=== PATIENT | male | born 1980 | race Caucasian/White ===

== ENCOUNTER 2020-04-19 08:00 | Outpatient (CLI) | payer OTHER ==
[2020-04-19 12:25] LABS: ALBUMIN 4.8 g/dL (3.2-5.5); ALBUMIN/GLOBULIN RATIO 1.6 (1.0-2.2); ALKALINE PHOSPHATASE 69 IU/L (42-121); ALT ALANINE AMINOTRANSFERASE 41 IU/L (10-60); AST ASPARTATE AMINOTRANSFERASE 28 IU/L (10-42); BUN - BLOOD UREA NITROGEN 17 mg/dL (6-20); CALCIUM 9.6 mg/dL (8.5-10.3); CARBON DIOXIDE - CO2 27 mmol/L (21-32); CHLORIDE 103 mmol/L (101-111); CHOL/HDL RATIO 4.7 (<5.0); CHOLESTEROL 156 mg/dL; CREATININE 0.8 mg/dL (0.6-1.2); GLUCOSE 82 mg/dL (70-100); HDL CHOLESTEROL 33 mg/dL; LDL CHOLESTEROL,CALCULATED 77 mg/dL; LDL/HDL RATIO 2.3 (<3.6); SODIUM 138 mmol/L (135-145); TOTAL PROTEIN 7.8 g/dL (6.7-8.2); VLDL CHOLESTEROL 46 mg/dL
== END 2020-04-19 23:59 | disposition home or self-care (01) ==
LOC: LAB.WCP 08:00
PROVIDERS: ATTEND Physician Assistant
DX: Z00.00 Encounter for general adult medical examination without abnormal findings (principal)
CPT/HCPCS: 36415; 80053; 80061; 83721

== ENCOUNTER 2020-05-07 20:37 | Outpatient (CLI) | payer OTHER | END 2020-05-07 20:38 | disposition home or self-care (01) | LOC: SC 20:37 | PROVIDERS: ATTEND Nurse Practitioner Family | DX: G47.33 Obstructive sleep apnea (adult) (pediatric) (principal); E66.9 Obesity, unspecified; Z68.41 Body mass index [BMI] 40.0-44.9, adult | CPT/HCPCS: 95810 ==

== ENCOUNTER 2020-05-13 16:19 | Outpatient (CLI) | payer OTHER ==
--- NOTE | 2020-05-13 16:40 | SLEEP CARE CONSULTATION ---
Information from patient questionnaire entered by Ingrid Rouse. I have reviewed and concur with the information entered by Ingrid Rouse. This document represents the service I personally performed and the decisions made by me, Debi Chew ARNP. History of Present Illness Service Date and Time: 05/13/2020 161 Initial [place] Sleepiness Scale score: 7 (in 2020) Current [place] Sleepiness Scale score: 10 Additional HPI information: NISSA SOTO returns for follow up and results of the recently performed polysomnography. I explained the pathophysiology behind obstructive sleep apnea. We then spent quite a bit of time discussing different treatment options. For mild obstructive sleep apnea, surgery and oral appliance are alternatives to nasal CPAP therapy but in moderate or severe cases, nasal CPAP is the most effective and reliable treatment. After some discussion, the patient opted to go with the nasal CPAP therapy. Nasal autoCPAP set at 4-15 cmH20 will be ordered with rationale explained. A manual titration study will be ordered if unable to find optimal pressure with office adjustments. I explained how CPAP machine works with sample devices [employer]pi Dreamstation and Proximiant [id number] and what to expect when using the machine. Using CPAP every night in order to get used to it was emphasized. Patient advised to put CPAP mask on before getting into bed so as not to fall asleep without CPAP. To assist acclimation to CPAP use, it could also be used for a short time during day while reading or watching TV. The patient was instructed to call the CPAP supplier to discuss any mechanical problem that may occur. If the mask given is uncomfortable or is difficult to keep on through the night even with adjustment, contact the CPAP supplier as many will replace with another mask style if notified before 30 days. If snoring or perceives is not getting enough air or too much air from the machine, notify this office. [facility] patient education PAP tips reviewed and given to patient. Patient counseled not drink alcohol less than 4 hours before bedtime as it can increase snoring and apnea. Patient was cautioned about risks of drowsy driving until sleepiness symptoms resolve. Sleep Study - Results Type of Sleep Study: Polysomnography Prior sleep studies: No Polysomnography/Home Sleep Study results: IMPRESSION: The quality of the study is good. The patient had normal sleep efficiency. The sleep architecture was abnormal for sleep fragmentation and reduced amount of time spent in REM and slow wave sleep (N3). Respiratory monitoring showed severe obstructive sleep apnea-hypopnea (AHI = 48.7) associated with frequent arousals, oxyhemoglobin desaturation and moderate hypoxia (nolan oxygen saturation of 77%). Baseline oxygen saturation was normal. The respiratory events occurred mainly during supine sleep (supine AHI = 70.6; non-supine = 13.62). Snore was loud in intensity. There was no significant periodic leg movement of sleep. Cardiac rhythm was normal sinus rhythm without significant arrhythmia. No abnormal behavior (parasomnia) observed during the night. Allergies and Home Medications Drug allergies reviewed: Yes (NKDA) Home medication list reviewed: Yes (no changes) Review of Systems Review of systems same as previous: Yes (no changes) Physical Exam Heart Rate: 80 O2 Saturation: 98 Height: 5 ft 5 in Weight: 235 lb Body Mass Index: 39.1 BMI Classification: Obese Impression and Plan 1. Obstructive Sleep Apnea-Hypopnea Syndrome, severe, with lowest oxygen saturation of 77%. This is the possible cause of the patients symptoms of unrefreshed sleep, and excessive daytime sleepiness. Positive pressure therapy could benefit his overall health and prevent cardiovascular or cerebrovascular events. As mentioned above, the patient will be started on nasal autoCPAP therapy with pressure set at 4-15 cmH2O. A manual titration study will be completed if unable to find optimal treatment pressure with office adjustments. Compliance guidelines also reviewed. A copy of compliance guidelines will be given for reference at check out. Because the apnea is more severe supine, I instructed to avoid sleeping supine using pillow positioning until able to start CPAP use. * Nasal auto CPAP therapy, pressure at 4-15 cm H2O. * Attempt to lose weight. * Avoid alcohol consumption near bedtime. * Avoid supine sleep until using CPAP. * The patient is again cautioned about driving until sleepiness completely resolves. * Return one month after CPAP obtained. I will assess response to therapy and compliance at that time. Visit Type: In Office Time Spent with Patient (minutes): 20 Provider Statement: I spent 100% of the Face to Face Visit with the patient with greater than 50% spent counseling the patient and coordination of care.
== END 2020-05-13 16:20 | disposition home or self-care (01) ==
LOC: SC 16:19
PROVIDERS: ATTEND Nurse Practitioner Family
DX: G47.33 Obstructive sleep apnea (adult) (pediatric) (principal); E66.9 Obesity, unspecified; Z68.39 Body mass index [BMI] 39.0-39.9, adult
CPT/HCPCS: 99212; 99213

== ENCOUNTER 2020-07-27 15:25 | Outpatient (CLI) | payer OTHER ==
--- NOTE | 2020-07-27 15:52 | SLEEP CARE CONSULTATION ---
Information from patient questionnaire entered by Ingrid Rouse. I have reviewed and concur with the information entered by Ingrid Rouse. This document represents the service I personally performed and the decisions made by , Debi Chew ARNP. History of Present Illness Service Date and Time: 07/27/2020 1525 Previous diagnosis: Severe, Obstructive Sleep Apnea-Hypopnea Syndrome AHI: 48.7 Reason for follow up: first compliance (06/05/20) Equipment type: CPAP Equipment obtained from: [employer]; initial supplies received) Mask style: Nasal (over the nose, N50?) Backup mask available: No (will keep mask once replaced) Last cushion change: 6 weeks Prior sleep studies: Yes Year and Where: 2019 [facility] Type of Sleep Study: Polysomnography HPI additional information: NISSA SOTO was diagnosed to have severe, AHI 48.7, obstructive sleep apnea- hypopnea syndrome and returned today for CPAP therapy first compliance follow- up. Sleep Study - Results Type of Sleep Study: Polysomnography Prior sleep studies: No CPAP Compliance Data - Data Reviewed with Patient Average duration of nightly device use: 7 hours 36 minutes Compliance rate %: 97 Current pressure setting (cmH2O): 4-15 (median 10.3, 95th 13.0, max 14.2) Humidity settin Average residual AHI: 0.8 Central apnea: 0.2 Obstructive apnea: 0.4 Subjective Patient concerns: reports: mask discomfort (tip of nose hits the inside of mask sometimes), air blowing in eyes (some, not very much, adjusting helps), condensation in mask/hose (adjusted his humidity to 2 and that is better). denies: aerophagia, mask leak noise, nasal congestion, dry mouth, nose, throat, epistaxis, other Observed to snore while using device: No Current pressure setting perceived as: comfortable On therapy, patient: reports: sleeping better, awakening more refreshed, being more awake and alert during the day, more rested overall. denies: drowsiness while driving Initial [place] Sleepiness Scale score: 7 (in 2019) Current [place] Sleepiness Scale score: 1 Allergies and Home Medications Drug allergies reviewed: Yes (NKDA) Home medication list reviewed: Yes (no changes) Review of Systems Review of systems same as previous: Yes (no changes) Physical Exam Heart Rate: 85 O2 Saturation: 99 Height: 5 ft 5 in Weight: 241 lb Body Mass Index: 40.1 BMI Classification: Morbidly Obese Impression and Plan 1. Obstructive Sleep Apnea-Hypopnea Syndrome, severe, with good treatment compliance and great apnea control. On CPAP therapy, the patient has better sleep quality and is more rested overall. He has been using an over the nose mask that he states the medium is the best fit but he can feel the tip of his nose hit the end of the mask. He states this does not feel very good at times. He would like to try the nasal cushion mask and I will write for a mask refitting to try this mask. He is otherwise doing well with treatment. His down load shows him using median 10.3 cm H2O, 95% 13.0 cm H2O and max 14.2 cm H2O. Based upon these readings, I will adjust his pressure to 10-14 cm H2O and follow up with him in 1-2 months. Patient's apnea severity and rationale for treatment to reduce apnea, improve sleep quality and reduce cardiovascular and cereb rovascular events was reviewed. * Change auto CPAP pressure to 10-14 cmH2O * Notify me if snoring with mask or feeling that the pressure is too much or too little * Attempt to lose weight * Call this office if any problems using CPAP * Return for follow up in 1-2 months, or sooner if concerns arise Counseling Topics: Spare mask, Weight loss health impact Visit Type: In Office Time Spent with Patient (minutes): 21 Provider Statement: I spent 100% of the Face to Face Visit with the patient with greater than 50% spent counseling the patient and coordination of care.
== END 2020-07-27 15:26 | disposition home or self-care (01) ==
LOC: SC 15:25
PROVIDERS: ATTEND Nurse Practitioner Family
DX: G47.33 Obstructive sleep apnea (adult) (pediatric) (principal); E66.01 Morbid (severe) obesity due to excess calories; Z68.41 Body mass index [BMI] 40.0-44.9, adult
CPT/HCPCS: 99212; 99213

== ENCOUNTER 2020-09-29 15:22 | Outpatient (CLI) | payer OTHER ==
--- NOTE | 2020-09-29 15:52 | SLEEP CARE CONSULTATION ---
Information from patient questionnaire entered by Ingrid Rouse. I have reviewed and concur with the information entered by Ingrid Rouse. This document represents the service I personally performed and the decisions made by , Debi Chew ARNP. History of Present Illness Service Date and Time: 09/29/2020 1522 Previous diagnosis: Severe, Obstructive Sleep Apnea-Hypopnea Syndrome AHI: 48.7 Reason for follow up: first compliance after device update, other (2-month followup - pressure change) Equipment type: CPAP Equipment obtained from: [email or web address] (no issues but their prices are high; getting supplies as needed) Mask style: Nasal Backup mask available: Yes (other mask) Last cushion change: 1 month Prior sleep studies: No Year and Where: 2019 [facility] Type of Sleep Study: Polysomnography HPI additional information: NISSA SOTO was diagnosed to have severe, AHI 48.7, obstructive sleep apnea- hypopnea syndrome and returned today for CPAP therapy 2 month pressure change follow-up. CPAP Compliance Data - Data Reviewed with Patient Average duration of nightly device use: 7 h 31 min Compliance rate %: 95 Current pressure setting (cmH2O): 10-14 Average residual AHI: 0.7 Central apnea: 0.3 Obstructive apnea: 0.2 Subjective Missed days of use due to: reports: other (Power outage) Patient concerns: denies: aerophagia (since beginning of August has had some bloating for 2 weeks), mask discomfort, air blowing in eyes, mask leak noise, condensation in mask/hose, nasal congestion, dry mouth, nose, throat, epistaxis, other Observed to snore while using device: No (only in certain positions or if has congestion; uncommon) Current pressure setting perceived as: comfortable On therapy, patient: reports: sleeping better, awakening more refreshed, being more awake and alert during the day, more rested overall. denies: drowsiness while driving Initial [place] Sleepiness Scale score: 7 (in 2019) Current [place] Sleepiness Scale score: 1 Allergies and Home Medications Home medication list reviewed: Yes (no changes) Review of Systems Review of systems same as previous: Yes (no changes) Physical Exam Heart Rate: 73 O2 Saturation: 96 Height: 5 ft 5 in Weight: 239 lb Body Mass Index: 39.7 BMI Classification: Obese Impression and Plan 1. Obstructive Sleep Apnea-Hypopnea Syndrome, severe, with good treatment compliance and good apnea control. On CPAP therapy, the patient has better sleep quality and is more rested overall. He thought he was having aerophagia. He started feeling bloated in early August but the feeling continued for two weeks with slow resolution. The bloating/uncomfortable feeling with some intestinal discomfort lasted throughout the day. He did not have burping/flatus that resolved in the morning. I am not convinced his bloating was from the CPAP therapy. We will continue the pressure at current setting since he has good compliance and excellent response from the therapy. He is happy with the treatment and comfortable with the mask use. I will have him follow up in 6 months. He may come in sooner if he develops any concerns. He voiced understanding and agreement with plan. Patient's apnea severity and rationale for treatment to reduce apnea, improve sleep quality and reduce cardiovascular and cerebrovascular events was reviewed. * Continue autoCPAP pressure at 10-14 cmH2O * Notify me if snoring with mask or feeling that the pressure is too much or too little * Attempt to lose weight * Call this office if any problems using CPAP * Return for follow up in 6 months, or sooner if concerns arise Counseling Topics: Spare mask, Weight loss health impact Visit Type: In Office Time Spent with Patient (minutes): 16 Provider Statement: I spent 100% of the Face to Face Visit with the patient with greater than 50% spent counseling the patient and coordination of care.
== END 2020-09-29 15:23 | disposition home or self-care (01) ==
LOC: SC 15:22
PROVIDERS: ATTEND Nurse Practitioner Family
DX: G47.33 Obstructive sleep apnea (adult) (pediatric) (principal); E66.9 Obesity, unspecified; Z68.39 Body mass index [BMI] 39.0-39.9, adult
CPT/HCPCS: 99212

== ENCOUNTER 2021-07-12 13:59 | Outpatient (CLI) | payer OTHER ==
[2021-07-12 14:36] VITALS: BP 135/90
--- NOTE | 2021-07-12 14:36 | SLEEP CARE CONSULTATION ---
Information from patient questionnaire entered by Radha Crocker MA. I have reviewed and concur with the information entered by Radha Crocker MA. This document represents the service I personally performed and the decisions made by , Debi Chew ARNP. History of Present Illness Service Date and Time: 07/12/2021 1359 Previous diagnosis: Severe, Obstructive Sleep Apnea-Hypopnea Syndrome AHI: 48.7 Reason for follow up: other (9 month follow up) Equipment type: CPAP Equipment obtained from: [employer] (no issues but their prices are high; getting supplies on [employer]) Mask style: Nasal pillows (P10) Backup mask available: Yes (old mask) Last cushion change: about 3 weeks Prior sleep studies: No Year and Where: 2019 [facility] Type of Sleep Study: Polysomnography HPI additional information: NISSA SOTO was diagnosed to have severe, AHI 48.7, obstructive sleep apnea- hypopnea syndrome and returned today for CPAP therapy 7 month follow-up. Sleep Study - Results Type of Sleep Study: Polysomnography Prior sleep studies: No Year and Where: 2019 [facility] CPAP Compliance Data - Data Reviewed with Patient Average duration of nightly device use: 7 hours 36 minutes Compliance rate %: 100 Current pressure setting (cmH2O): 10 - 14 Average residual AHI: 0.6 Central apnea: .2 Obstructive apnea: .1 Subjective Missed days of use due to: reports: other (power outage ) Patient concerns: denies: aerophagia, mask discomfort, air blowing in eyes, mask leak noise, condensation in mask/hose, nasal congestion, dry mouth, nose, throat, epistaxis, other Observed to snore while using device: No Current pressure setting perceived as: comfortable On therapy, patient: reports: sleeping better, awakening more refreshed, being more awake and alert during the day, more rested overall. denies: drowsiness while driving Initial [place] Sleepiness Scale score: 7 (in 2019) Current [place] Sleepiness Scale score: 1 (in 2020) Allergies and Home Medications Home medication list reviewed: Yes (no changes) Review of Systems Review of systems same as previous: Yes (no changes) Physical Exam Vital signs obtained and entered by: MARIO QUEVEDO Blood Pressure: 135/90 (right) Cuff size: wrist Heart Rate: 80 O2 Saturation: 97 (with mask) Height: 5 ft 5 in Weight: 240 lb ( weight from PT. ) Body Mass Index: 39.9 BMI Classification: Obese Impression and Plan 1. Obstructive Sleep Apnea-Hypopnea Syndrome, severe, with good treatment compliance and good apnea control. On CPAP therapy, the patient has better sleep quality and is more rested overall. Patient changed to a different nasal pillows mask. He likes it much better than the other nasal cushion mask he was using. He occasionally gets red shi on his face the mask hits his cheek. Discussed using a barrier to help reduce this and also to keep the mask etc. clean. He states he does have a barrier he just has not use it with this mask change yet. He will try this again to reduce skin redness. Patient was encouraged to lose weight for their overall health and to reduce apneas. Patient's apnea severity and rationale for treatment to reduce apnea, improve sleep quality and reduce cardiovascular and cerebrovascular events was reviewed. * Continue auto CPAP pressure at 10-14 cmH2O * Notify me if snoring with mask or feeling that the pressure is too much or too little * Attempt to lose weight * Call this office if any problems using CPAP * Return for follow up in 1 year, or sooner if concerns arise Counseling Topics: Spare mask, Weight loss health impact Visit Type: In Office Time Spent with Patient (minutes): 12 Provider Statement: I spent 100% of the Face to Face Visit with the patient with greater than 50% spent counseling the patient and coordination of care.
== END 2021-07-12 14:00 | disposition home or self-care (01) ==
LOC: SC 13:59
PROVIDERS: ATTEND Nurse Practitioner Family
DX: G47.33 Obstructive sleep apnea (adult) (pediatric) (principal); E66.9 Obesity, unspecified; Z68.39 Body mass index [BMI] 39.0-39.9, adult
CPT/HCPCS: 99212

== ENCOUNTER 2021-10-22 09:01 | Outpatient (CLI) | payer OTHER ==
[2021-10-22 10:23] LABS: BILIRUBIN,URINE NEGATIVE (NEGATIVE); CLARITY,URINE CLEAR (CLEAR); GLUCOSE, URINE (UA) NEGATIVE (NEGATIVE); KETONES,URINE (UA) NEGATIVE (NEGATIVE); LEUKOCYTE ESTERASE, URINE NEGATIVE (NEGATIVE); NITRITE,URINE NEGATIVE (NEGATIVE); OCCULT BLOOD,URINE NEGATIVE (NEGATIVE); PROTEIN,URINE NEGATIVE (NEGATIVE); UROBILINOGEN,URINE 0.2 (NORMAL) E.U./dL (NORMAL)
[2021-10-22 10:35] LABS: BACTERIA,URINE Rare /HPF (None Seen); RBC,URINE 0-5 /HPF (0-5); SQUAMOUS EPITHELIAL CELL,UR NONE SEEN (<= Few); WBC,URINE 0-3 /HPF (0-3)
--- NOTE | 2021-10-22 11:03 | Ultrasound Report ---
PROCEDURE: Abdomen Complete INDICATIONS: RUQ ABD TENDERNESS TECHNIQUE: Real-time scanning was performed of the abdominal and retroperitoneal organs, with image documentatio n. COMPARISON: None. FINDINGS: Liver: Diffuse increased echogenicity, consistent with diffuse hepatic steatosis. Fatty sparing subja cent to the gallbladder. Gallbladder: Multiple layering gallstones are present. No gallbladder wall thickening. No pain on exa mination. Biliary ducts: Intrahepatic bile ducts are non-dilated. Extrahepatic bile duct caliber measures 3 m m. Normal is 6-7 mm or less in diameter, or 10 mm or less post-cholecystectomy. Pancreas: Visualized portions of the pancreas are sonographically normal. Spleen: Spleen is normal in size and homogeneous in echotexture. Kidneys: Kidneys are normal in size and echotexture. Right kidney measures 11.9 cm long; left kidne y measures 12.3 cm long. No hydronephrosis or nephrolithiasis. No solid masses. Aorta: Visualized aorta is normal in caliber at less than 3 cm. Iliacs: Proximal common iliac arteries are normal in caliber at less than 2.5 cm. IVC: Intrahepatic inferior vena cava is patent. Miscellaneous: No free abdominal fluid. IMPRESSION: 1. Diffuse hepatic steatosis. 2. Cholelithiasis. Reviewed by: Michel Regalado MD on 10/22/2021 10:01 AM [facility] Approved by: Michel Regalado MD on 10/22/2021 10:01 AM [facility] Station ID: [id number]
[2021-10-22 11:23] LABS: BASOPHILS % (AUTO) 0.2 %; EOSINOPHILS % (AUTO) 0.8 %; HCT - HEMATOCRIT 45.2 % (42.0-52.0); HGB - HEMOGLOBIN 15.5 g/dL (14.0-18.0); LYMPHOCYTES # (AUTO) 1.6 10^3/uL (1.5-3.5); LYMPHOCYTES % (AUTO) 29.9 %; MEAN CORPUSCULAR HEMOGLOBIN 30.2 pg (27.0-31.0); MEAN CORPUSCULAR HGB CONC 34.3 g/dL (32.0-36.0); MEAN CORPUSCULAR VOLUME 88.1 fL (80.0-94.0); MEAN PLATELET VOLUME 9.6 fL (7.4-11.4); MONOCYTES # (AUTO) 0.5 10^3/uL (0.0-1.0); MONOCYTES % (AUTO) 9.2 %; NEUTROPHILS # (AUTO) 3.1 10^3/uL (1.5-6.6); NEUTROPHILS % (AUTO) 59.5 %; PLT - PLATELET COUNT 208 10^3/uL (130-450); RED BLOOD COUNT 5.13 10^6/uL (4.70-6.10); RED CELL DISTRIBUTION WIDTH 11.9 % (12.0-15.0); WHITE BLOOD COUNT 5.2 x10^3/uL (4.8-10.8)
[2021-10-22 11:45] LABS: ALBUMIN 4.5 g/dL (3.2-5.5); ALBUMIN/GLOBULIN RATIO 1.5 (1.0-2.2); ALKALINE PHOSPHATASE 66 IU/L (42-121); ALT ALANINE AMINOTRANSFERASE 40 IU/L (10-60); AMYLASE 59 U/L (28-100); AST ASPARTATE AMINOTRANSFERASE 27 IU/L (10-42); BILIRUBIN,TOTAL 0.5 mg/dL (0.2-1.0); BUN - BLOOD UREA NITROGEN 17 mg/dL (6-20); CALCIUM 9.5 mg/dL (8.5-10.3); CARBON DIOXIDE - CO2 27 mmol/L (21-32); CHLORIDE 104 mmol/L (101-111); CHOLESTEROL 155 mg/dL; CREATININE 0.9 mg/dL (0.6-1.2); GFR - MDRD 93 (>89); GLUCOSE 86 mg/dL (70-100); HDL CHOLESTEROL 31 mg/dL; LDL CHOLESTEROL,CALCULATED 68 mg/dL; LDL/HDL RATIO 2.2 (<3.6); LIPASE 37 U/L (22-51); POTASSIUM 4.2 mmol/L (3.5-5.0); SODIUM 141 mmol/L (135-145); TOTAL PROTEIN 7.6 g/dL (6.7-8.2); TRIGLYCERIDES 281 mg/dL; VLDL CHOLESTEROL 56 mg/dL
[2021-10-22 19:53] LABS: ESTIMATED AVERAGE GLUCOSE 94 mg/dL (70-100); HEMOGLOBIN A1c% 4.9 % (4.27-6.07)
== END 2021-10-22 09:02 | disposition home or self-care (01) ==
LOC: DI 09:01 → LAB 09:02
PROVIDERS: ATTEND Nurse Practitioner
DX: R10.811 Right upper quadrant abdominal tenderness (principal); Z13.220 Encounter for screening for lipoid disorders; E66.9 Obesity, unspecified; K76.0 Fatty (change of) liver, not elsewhere classified; K80.20 Calculus of gallbladder without cholecystitis without obstruction
CPT/HCPCS: 36415; 80053; 80061; 81001; 82150; 83036; 83690; 83721; 85025; 87086

== ENCOUNTER 2022-06-01 08:00 | Outpatient (CLI) | payer OTHER ==
--- NOTE | 2022-06-02 10:57 | Mammography Report ---
MALE BILATERAL DIGITAL DIAGNOSTIC MAMMOGRAM 3D/2D: 06/01/2022 CLINICAL: Palpable right breast lump with tenderness for 6 months. No prior exams were available for comparison. There is a round focal asymmetry in the right breast at 1 o'clock middle depth 0.7 cm from the nipple and 0.5 cm from the skin. This correlates as palpated. No other significant masses, calcifications, or other findings are seen in either breast. IMPRESSION: INCOMPLETE: NEEDS ADDITIONAL IMAGING EVALUATION Round focal asymmetry in the right breast is indeterminate. An ultrasound will be performed for bhavani tional characterization. This exam was interpreted at Station ID: [id number]. NOTE: For mammograms, a report in lay terms will be sent to the patient. Approximately 15% of breast malignancies will not be visualized mammographically. In the management of a palpable breast mass, a negative mammogram must not discourage biopsy of a clinically suspicious lesion. Electronically Signed By: Raphael Cabezas M.D. jr/:06/01/2022 10:04:35 ACR BI-RADS Category 0: Incomplete [id number] PARENCHYMAL PATTERN: (D) - The breast(s) demonstrate(s) heterogeneously dense fibroglandular parcarmelina solorzano. BI-RADS CATEGORY: (0) - 0 Ultrasound [id number] Immediate follow-up LATERALITY: (B)
--- NOTE | 2022-06-02 10:57 | Ultrasound Report ---
LIMITED ULTRASOUND OF RIGHT BREAST: 06/01/2022 CLINICAL: Patient returns today to evaluate an asymmetry in the right breast. Palpable right breast l ump. Comparison is made to exam dated: 06/01/2022 mammogram - [facility]. Color flow and real-time ultrasound of the right breast 2-3 o'clock region were performed. Monroy scal e images of the real-time examination were reviewed. There is a round mass with an angular margin in the right breast at 2 o'clock middle depth 0.7 cm fro m the nipple and 0.5 cm from the skin. This round mass is hypoechoic with no posterior acoustic shad owing or enhancement. IMPRESSION: SUSPICIOUS OF MALIGNANCY The round mass in the right breast is suspicious of malignancy. An ultrasound guided biopsy is recom mended. This exam was interpreted at Station ID: [id number]. Electronically Signed By: Raphael Cabezas M.D. jr/:06/01/2022 10:05:47 Ultrasound BI-RADS: 4 Suspicious for malignancy BI-RADS CATEGORY: (4) - 4 Biopsy [id number] Immediate follow-up LATERALITY: (R)
== END 2022-06-01 08:01 | disposition home or self-care (01) ==
LOC: DI 08:00
PROVIDERS: ATTEND Nurse Practitioner
DX: N63.12 Unspecified lump in the right breast, upper inner quadrant (principal)

== ENCOUNTER 2022-06-20 13:40 | Outpatient (CLI) | payer OTHER ==
[~2022-06-20 13:40] MED LIST: LIDOCAINE 1%-EPI 1:100000 20 ML MDV ONE; lidocaine 1% 20 ML MDV ONE
--- NOTE | 2022-06-23 15:18 | Ultrasound Report ---
LIMITED ULTRASOUND OF RIGHT BREAST: 06/20/2022 CLINICAL: Short term follow up of the right breast. Bx cx'ed by performing radiologist... Comparison is made to exams dated: 06/01/2022 ultrasound and 06/01/2022 mammogram - [facility]. Color flow and real-time ultrasound of the right breast 2 o'clock region were performed. [place]roy scale images of the real-time examination were reviewed. There is a round mass with a circumscribed margin in the right breast at 1 o'clock middle depth 0.7 c m from the nipple and 0.5 cm from the skin. This round mass is anechoic with posterior acoustic enha ncement. Color flow imaging demonstrates that there is no increase in vascularity. IMPRESSION: PROBABLY BENIGN The round mass in the right breast most likely is a sebaceous cyst and is probably benign. Biopsy is no longer recommended. Follow-up ultrasound recommended in 6 months. This exam was interpreted at Station ID: [id number]. Electronically Signed By: Raphael Cabezas M.D. jr/:06/22/2022 11:26:25 Ultrasound BI-RADS: 3 Probably benign BI-RADS CATEGORY: (3) - 3 Ultrasound [id number] 6 month follow-up LATERALITY: (B)
== END 2022-06-20 13:41 | disposition home or self-care (01) ==
LOC: DI 13:40
PROVIDERS: ATTEND Nurse Practitioner
DX: N63.12 Unspecified lump in the right breast, upper inner quadrant (principal)

== ENCOUNTER 2023-02-19 10:10 | Outpatient (CLI) | payer OTHER ==
--- NOTE | 2023-02-21 10:35 | Ultrasound Report ---
LIMITED ULTRASOUND OF RIGHT BREAST: 02/19/2023 CLINICAL: Palpable right breast lump. Comparison is made to exams dated: 06/20/2022 ultrasound, 06/01/2022 ultrasound, and 06/01/2022 mammo [facility]. Color flow ultrasound of the right breast 2 o'clock region was performed. [place] scale images of the r eal-time examination were reviewed. There is a 0.3 cm x 0.3 cm x 0.2 cm round cyst in the right breast at 2 o'clock middle depth 7 cm fro m the nipple. This round cyst displays posterior acoustic enhancement. Color flow imaging demonstra shiv that there is no increase in vascularity. IMPRESSION: PROBABLY BENIGN The 0.3 cm x 0.3 cm x 0.2 cm round suspected cyst in the right breast most likely is a sebaceous cyst and is probably benign. A follow-up ultrasound in 6 months is recommended. This exam was interpreted at Station ID: [id number]. Electronically Signed By: Raj Lopez M.D. lc/:02/19/2023 10:54:03 Ultrasound BI-RADS: 3 Probably benign BI-RADS CATEGORY: (3) - 3 Ultrasound [id number] 6 month follow-up LATERALITY: (B)
== END 2023-02-19 10:11 | disposition home or self-care (01) ==
LOC: DI 10:10
PROVIDERS: ATTEND Nurse Practitioner
DX: N63.12 Unspecified lump in the right breast, upper inner quadrant (principal)

== ENCOUNTER 2023-03-15 08:00 | Outpatient (CLI) | payer OTHER ==
[2023-03-15 18:25] LABS: BILIRUBIN,URINE NEGATIVE (NEGATIVE); GLUCOSE, URINE (UA) NEGATIVE (NEGATIVE); KETONES,URINE (UA) NEGATIVE (NEGATIVE); LEUKOCYTE ESTERASE, URINE NEGATIVE (NEGATIVE); NITRITE,URINE NEGATIVE (NEGATIVE); OCCULT BLOOD,URINE NEGATIVE (NEGATIVE); PH,URINE 6.5 PH (5.0-7.5); PROTEIN,URINE NEGATIVE (NEGATIVE); UROBILINOGEN,URINE 0.2 (NORMAL) E.U./dL (NORMAL)
[2023-03-15 18:30] LABS: CLARITY,URINE CLEAR (CLEAR)
[2023-03-15 19:08] LABS: RBC,URINE 0-5 /HPF (0-5); SQUAMOUS EPITHELIAL CELL,UR NONE SEEN (<= Few); WBC,URINE 0-3 /HPF (0-3)
[2023-03-15 19:09] LABS: BACTERIA,URINE Rare /HPF (None Seen); MUCUS,URINE Few Strands
== END 2023-03-15 23:59 | disposition home or self-care (01) ==
LOC: LAB 08:00
PROVIDERS: ATTEND Urology
DX: N48.89 Other specified disorders of penis (principal)
CPT/HCPCS: 81001; 87086

== ENCOUNTER 2023-06-14 03:25 | Emergency (ER) | payer OTHER ==
[2023-06-14] MEDS ORDERED: SODIUM CHLORIDE 0.9% 1,000 ML IV STA (03:42)
[2023-06-14] MEDS ORDERED: KETOROLAC 30 MG/ML VIAL IVP STA (03:49)
--- NOTE | 2023-06-14 03:51 | ED Physician Documentation ---
History of Present Illness - Stated complaint Stated Complaint: ABD PX - Chief complaint Chief Complaint: Abd Pain - History obtained from History obtained from: Patient - Additonal information Additional information: 43-year-old male with past surgical history of cholecystectomy, otherwise healthy, presents with right flank pain waking him from sleep tonight and hematuria. Denies fever, abdominal pain, nausea, dysuria, diarrhea. PD PAST MEDICAL HISTORY - Present Medications Home Medications: Ambulatory Orders Medication Instructions Recorded Confirmed Oxycodone HCl/Acetaminophen 1 each PO Q4H PRN #8 tablet 06/14/23 [Percocet 5-325 mg Tablet] Tamsulosin [Flomax] 0.4 mg PO DAILY 14 Days #14 tab 06/14/23 - Allergies Allergies/Adverse Reactions: Allergies Allergy/AdvReac Type Severity Reaction Status Date / Time No Known Drug Allergies Allergy Verified 06/14/23 03:35 PD ED PE NORMAL - Vitals Vital signs reviewed: Yes - General General: Alert and oriented X 3, No acute distress, Well developed/nourished - HEENT HEENT: Atraumatic, PERRL, EOMI, Moist mucous membranes, Pharynx benign - Neck Neck: Supple, no meningeal sign - Cardiac Cardiac: RRR - Respiratory Respiratory: No respiratory distress, Clear bilaterally - Abdomen Abdomen: Non tender, Non distended - Back Back: Other (Right CVA tender to palpation) - Derm Derm: Normal color, Warm and dry Results - Vitals Vitals: Vital Signs - 24 hr 06/14/23 06/14/23 06/14/23 03:30 04:50 05:00 Temperature 36.3 C L Heart Rate 80 84 87 Respiratory 20 16 18 Rate Blood Pressure 149/79 H 143/81 H 130/91 H O2 Saturation 99 98 96 06/14/23 05:35 Temperature Heart Rate 89 Respiratory 16 Rate Blood Pressure 141/88 H O2 Saturation 100 Oxygen O2 Source Room air - Labs Labs: Laboratory Tests 06/14/23 06/14/23 06/14/23 03:41 03:48 03:48 WBC 9.1 RBC 5.13 Hgb 15.7 Hct 45.4 MCV 88.5 MCH 30.6 MCHC 34.6 RDW 12.2 Plt Count 258 MPV 9.3 Neut # (Auto) 4.1 Lymph # (Auto) 3.9 H [place] # (Auto) 0.9 Eos # (Auto) 0.1 Baso # (Auto) 0.0 Absolute Nucleated RBC 0.00 Nucleated RBC % 0.0 Sodium 138 Potassium 3.6 Chloride 103 Carbon Dioxide 27 Anion Gap 8.0 BUN 19 Creatinine 0.9 Estimated GFR (MDRD) 92 Glucose 95 Calcium 9.8 Total Bilirubin 0.3 AST 25 ALT 41 Alkaline Phosphatase 79 Total Protein 7.7 Albumin 4.7 Globulin 3.0 Albumin/Globulin Ratio 1.6 Lipase 58 Urine Color YELLOW Urine Clarity HAZY Urine pH 5.5 Ur Specific [place] >=1.030 H Urine Protein 100 H Urine Glucose (UA) NEGATIVE Urine Ketones NEGATIVE Urine Occult Blood LARGE H Urine Nitrite NEGATIVE Urine Bilirubin NEGATIVE Urine Urobilinogen 0.2 (NORMAL) Ur Leukocyte Esterase NEGATIVE Urine RBC TNTC H Urine WBC 0-3 Ur Squamous Epith Cells NONE SEEN Urine Bacteria None Seen Urine Mucus Few Strands Ur Microscopic Review INDICATED Urine Culture Comments NOT INDICATED PD Medical Decision Making - ED course ED course: 43-year-old man presents with right flank pain concerning for renal colic. CBC, abdominal panel, UA and CT abdomen pelvis ordered. Normal saline, IV Toradol provided with improvement in pain. Departure - Departure Disposition: 01 Home, Self Care Clinical Impression: Kidney stones Condition: Stable Instructions: Kidney Stones Follow-Up: Gurpreet Jiménez MD [Provider Admit Priv/Credential] - Prescriptions: Tamsulosin [Flomax] 0.4 mg PO DAILY 14 Days #14 tab Oxycodone HCl/Acetaminophen [Percocet 5-325 mg Tablet] 1 each PO Q4H PRN #8 tablet PRN Reason: Pain >8 Comments: You were seen in the emergency department for kidney stones. Prescriptions sent electronically to [facility]. Please follow-up with urology and return to the emergency department if you have any new or worsening symptoms or other concerns. Forms: PCP List
[2023-06-14 03:54] LABS: BASOPHILS % (AUTO) 0.4 %; EOSINOPHILS # (AUTO) 0.1 10^3/uL (0.0-0.7); EOSINOPHILS % (AUTO) 1.2 %; HCT - HEMATOCRIT 45.4 % (42.0-52.0); HGB - HEMOGLOBIN 15.7 g/dL (14.0-18.0); LYMPHOCYTES # (AUTO) 3.9 10^3/uL (1.5-3.5); LYMPHOCYTES % (AUTO) 43.2 %; MEAN CORPUSCULAR HEMOGLOBIN 30.6 pg (27.0-31.0); MEAN CORPUSCULAR HGB CONC 34.6 g/dL (32.0-36.0); MEAN CORPUSCULAR VOLUME 88.5 fL (80.0-94.0); MEAN PLATELET VOLUME 9.3 fL (7.4-11.4); MONOCYTES # (AUTO) 0.9 10^3/uL (0.0-1.0); MONOCYTES % (AUTO) 9.7 %; NEUTROPHILS # (AUTO) 4.1 10^3/uL (1.5-6.6); NEUTROPHILS % (AUTO) 44.8 %; PLT - PLATELET COUNT 258 10^3/uL (130-450); RED BLOOD COUNT 5.13 10^6/uL (4.70-6.10); RED CELL DISTRIBUTION WIDTH 12.2 % (12.0-15.0); WHITE BLOOD COUNT 9.1 x10^3/uL (4.8-10.8)
[2023-06-14 03:55] LABS: CLARITY,URINE HAZY (CLEAR); GLUCOSE, URINE (UA) NEGATIVE (NEGATIVE); KETONES,URINE (UA) NEGATIVE (NEGATIVE); LEUKOCYTE ESTERASE, URINE NEGATIVE (NEGATIVE); NITRITE,URINE NEGATIVE (NEGATIVE); OCCULT BLOOD,URINE LARGE (NEGATIVE); PH,URINE 5.5 PH (5.0-7.5); PROTEIN,URINE 100 mg/dL (NEGATIVE); UROBILINOGEN,URINE 0.2 (NORMAL) E.U./dL (NORMAL)
[2023-06-14 04:01] LABS: BACTERIA,URINE None Seen /HPF (None Seen); BILIRUBIN,URINE NEGATIVE (NEGATIVE); ICTOTEST,URINE NEGATIVE; RBC,URINE TNTC /HPF (0-5); SQUAMOUS EPITHELIAL CELL,UR NONE SEEN (<= Few); WBC,URINE 0-3 /HPF (0-3)
[2023-06-14 04:02] LABS: MUCUS,URINE Few Strands
[2023-06-14 04:09] LABS: ALBUMIN 4.7 g/dL (3.2-5.5)
[2023-06-14 04:38] LABS: ALBUMIN/GLOBULIN RATIO 1.6 (1.0-2.2); BILIRUBIN,TOTAL 0.3 mg/dL (0.2-1.0); CALCIUM 9.8 mg/dL (8.5-10.3); CREATININE 0.9 mg/dL (0.6-1.3); POTASSIUM 3.6 mmol/L (3.5-4.5); TOTAL PROTEIN 7.7 g/dL (6.4-8.9)
[2023-06-14] MEDS ORDERED: oxyCODONE/ACET 5/325 Prepack 4 PO STA (04:39)
[2023-06-14] MEDS ORDERED: MORPHINE 2 MG/ML CARPUJECT IVP STA (04:51)
[2023-06-14 05:40] VITALS: BP 141/88; O2SAT 100
--- NOTE | 2023-06-14 07:44 | CT Report ---
PROCEDURE: ABDOMEN/PELVIS WO INDICATIONS: flank pain, hx kid stones TECHNIQUE: A CT scan of the abdomen and pelvis was performed without the use of intravenous contrast. Images we re recorded and evaluated at appropriate window settings. Reformats: coronal and sagittal. For radiat ion dose reduction, the following was used: automated exposure control, adjustment of mA and/or kV ac cording to patient size. COMPARISON: None. FINDINGS: Image quality: Excellent. Lung bases and heart: Unremarkable. Liver: No solid mass. Gallbladder and biliary tree: There are densities near the cystic duct likely representing vascular c alcifications. The gallbladder is otherwise decompressed. No acute inflammatory changes. Spleen: No splenomegaly. Pancreas: No pancreatic ductal dilation. Adrenals: No adrenal nodule. Kidneys and ureters: There is a 2 mm obstructing stone noted at the right ureteropelvic junction with associated mild renal edema and mild right hydronephrosis. Additional tiny punctate right renal ston es are noted. Visualized course of the right ureter is otherwise normal. No other ureteral stones. Le ft kidney is unremarkable in appearance. No evidence for hydronephrosis or urolithiasis on the left. Left ureter is normal in course and caliber. Bowel and peritoneum: No bowel distension. No pathologic free fluid. Multiple loops of fluid-filled s mall bowel. Normal appendix. Lymph nodes: No central or retroperitoneal adenopathy. Vessels: No infrarenal aortic aneurysm. PELVIS Reproductive organs: Unremarkable. Bladder: No wall thickness, accounting for underdistention. No bladder stone seen. Pelvic lymph nodes: No pelvic adenopathy by size criteria. Bones: No aggressive osseous abnormality. No acute compression fractures. Other: No significant ventral or inguinal hernia. IMPRESSION: 1. Obstructing 2 mm right urolith at the right ureteropelvic junction with associated mild right hydr onephrosis and renal edema. There is also nephrolithiasis of the right kidney. 2. Normal appearance of the left kidney and renal collecting system. 3. Fluid-filled loops of small bowel possibly representing enteritis either infectious or inflammator y in etiology. No evidence for obstruction. 4. Other chronic findings as above. No significant discrepancy with initial interpretation by overnight radiologist. Reviewed by: Manolo Alcala MD on 06/14/2023 7:43 AM PDT Approved by: Manolo Alcala MD on 06/14/2023 7:43 AM PDT Station ID: [id number]
== END 2023-06-14 05:52 | disposition home or self-care (01) ==
LOC: ED 03:25
DX: N20.0 Calculus of kidney (principal)
CPT/HCPCS: 36415; 80053; 81001; 81003; 83690; 85025; 87086; 96374; 96375; 99284

== ENCOUNTER 2023-08-29 15:39 | Outpatient (CLI) | payer OTHER ==
[2023-08-29 17:53] LABS: BASOPHILS % (AUTO) 0.3 %; EOSINOPHILS # (AUTO) 0.1 10^3/uL (0.0-0.7); EOSINOPHILS % (AUTO) 1.3 %; HCT - HEMATOCRIT 47.7 % (42.0-52.0); HGB - HEMOGLOBIN 15.7 g/dL (14.0-18.0); LYMPHOCYTES # (AUTO) 1.6 10^3/uL (1.5-3.5); LYMPHOCYTES % (AUTO) 26.6 %; MEAN CORPUSCULAR HEMOGLOBIN 29.8 pg (27.0-31.0); MEAN CORPUSCULAR HGB CONC 32.9 g/dL (32.0-36.0); MEAN CORPUSCULAR VOLUME 90.5 fL (80.0-94.0); MEAN PLATELET VOLUME 9.7 fL (7.4-11.4); MONOCYTES # (AUTO) 0.5 10^3/uL (0.0-1.0); MONOCYTES % (AUTO) 8.4 %; NEUTROPHILS # (AUTO) 3.7 10^3/uL (1.5-6.6); NEUTROPHILS % (AUTO) 63.1 %; PLT - PLATELET COUNT 205 10^3/uL (130-450); RED BLOOD COUNT 5.27 10^6/uL (4.70-6.10); WHITE BLOOD COUNT 5.9 x10^3/uL (4.8-10.8)
[2023-08-29 18:22] LABS: ALBUMIN 4.7 g/dL (3.2-5.5); ALBUMIN/GLOBULIN RATIO 1.6 (1.0-2.2); BILIRUBIN,TOTAL 0.5 mg/dL (0.2-1.0); CALCIUM 9.6 mg/dL (8.5-10.3); CREATININE 0.7 mg/dL (0.6-1.3); POTASSIUM 3.8 mmol/L (3.5-4.5); TOTAL PROTEIN 7.7 g/dL (6.4-8.9)
[2023-08-29 18:39] LABS: BILIRUBIN,URINE NEGATIVE (NEGATIVE); GLUCOSE, URINE (UA) NEGATIVE (NEGATIVE); KETONES,URINE (UA) NEGATIVE (NEGATIVE); LEUKOCYTE ESTERASE, URINE NEGATIVE (NEGATIVE); NITRITE,URINE NEGATIVE (NEGATIVE); OCCULT BLOOD,URINE NEGATIVE (NEGATIVE); PH,URINE 6.5 PH (5.0-7.5); PROTEIN,URINE NEGATIVE (NEGATIVE); UROBILINOGEN,URINE 0.2 (NORMAL) E.U./dL (NORMAL)
[2023-08-29 19:10] LABS: BACTERIA,URINE Rare /HPF (None Seen); CLARITY,URINE CLEAR (CLEAR); MUCUS,URINE Few Strands; RBC,URINE None Seen /HPF (0-5); SQUAMOUS EPITHELIAL CELL,UR RARE Squamous (<= Few); WBC,URINE 0-3 /HPF (0-3)
[2023-08-29 20:57] LABS: ESTIMATED AVERAGE GLUCOSE 97 mg/dL (70-100)
== END 2023-08-29 15:40 | disposition home or self-care (01) ==
LOC: LAB.N 15:39
PROVIDERS: ATTEND Nurse Practitioner
DX: R10.13 Epigastric pain (principal); E66.9 Obesity, unspecified
CPT/HCPCS: 36415; 80053; 81001; 82150; 83036; 83690; 85025; 87086

== ENCOUNTER 2023-09-03 12:48 | Outpatient (CLI) | payer OTHER ==
--- NOTE | 2023-09-04 16:41 | Ultrasound Report ---
LIMITED ULTRASOUND OF RIGHT BREAST: 09/03/2023 CLINICAL: Palpable right breast lump. Comparison is made to exams dated: 02/19/2023 ultrasound, 06/20/2022 ultrasound, 06/01/2022 ultrasound, and 06/01/2022 mammogram - [facility]. Color flow ultrasound of the right breast 2 o'clock region was performed. Monroy scale images of the r eal-time examination were reviewed. There is a stable benign 0.3 cm x 0.3 cm x 0.2 cm round cyst in the right breast at 2 o'clock middle depth 7 cm from the nipple. This round cyst is anechoic with posterior acoustic enhancement. Color flow imaging demonstrates that there is no vascularity present. IMPRESSION: BENIGN There is no sonographic evidence of malignancy. The stable 0.3 cm cyst in the right breast most likely is a simple, epidermal inclusion cyst or a oren aceous cyst and is benign. Clinical follow up only for this finding. He should return if this finding significantly grows. Findings and recommendations were conveyed to the patient at time of exam. This exam was interpreted at Station ID: [id number]. Electronically Signed By: Jami arguelles/:09/03/2023 14:07:06 Ultrasound BI-RADS: 2 Benign BI-RADS CATEGORY: (2) - 2 Unspecified - other recall n/a LATERALITY: (B)
== END 2023-09-03 12:49 | disposition home or self-care (01) ==
LOC: DI 12:48
PROVIDERS: ATTEND Nurse Practitioner
DX: N60.01 Solitary cyst of right breast (principal)

== ENCOUNTER 2023-09-26 07:33 | Outpatient (CLI) | payer OTHER ==
--- NOTE | 2023-09-26 16:49 | Ultrasound Report ---
PROCEDURE: Abdomen Complete INDICATIONS: EPIGASTRIC PAIN TECHNIQUE: Real-time scanning was performed of the abdominal and retroperitoneal organs, with image documentatio n. COMPARISON: CT abdomen 06/14/2023 FINDINGS: Liver: Liver measures 15.6 cm with steatosis. Suspected area of fat sparing is present measuring 4.8 x 2.5 x 4.9 cm. Gallbladder: Cholecystectomy. Within the gallbladder fossa, there are 2 foci of relative decreased ec hogenicity measuring 2.6 x 2.4 x 2.1 cm and 2.1 x 1.5 x 1.9 cm. These were present on prior CT exam. Biliary ducts: Intrahepatic bile ducts are non-dilated. Extrahepatic bile duct caliber measures 4.8 mm. Normal is 6-7 mm or less in diameter, or 10 mm or less post-cholecystectomy. Pancreas: Visualized portions of the pancreas are sonographically normal. Spleen: Spleen is normal in size and homogeneous in echotexture. Kidneys: Kidneys are normal in size and echotexture. Right kidney measures 11.8 cm long; left kidne y measures 12.5 cm long. No hydronephrosis or nephrolithiasis. No solid masses. No complex renal cy stic lesions which require follow-up. Aorta: Visualized aorta is normal in caliber at less than 3 cm. Iliacs: Proximal common iliac arteries are normal in caliber at less than 2.5 cm. IVC: Intrahepatic inferior vena cava is patent. Miscellaneous: No free abdominal fluid. IMPRESSION: Foci of decreased echogenicity within the gallbladder fossa appearing relatively unchanged compared t o prior exam. Etiology is uncertain. These could represent areas of postsurgical seroma. However, if concern persists, CT abdomen with contrast is recommended for further evaluation comparison to prior CT exam. Reviewed by: Marlin Ahumada MD on 09/26/2023 4:48 PM PST Approved by: Marlin Ahumada MD on 09/26/2023 4:48 PM PST Station ID: [id number]
== END 2023-09-26 07:34 | disposition home or self-care (01) ==
LOC: DI 07:33
PROVIDERS: ATTEND Nurse Practitioner
DX: R10.13 Epigastric pain (principal); R93.3 Abnormal findings on diagnostic imaging of other parts of digestive tract

== ENCOUNTER 2024-02-25 07:27 | Day surgery (SDC) | payer OTHER ==
[2024-02-25] MEDS: LACTATED RINGERS 1,000 ML IV ONE ×2 (07:37→10:38)
[2024-02-25] MEDS ORDERED: fentaNYL 100 MCG/2 ML VIAL IVP PRN (08:24)
[2024-02-25] MEDS ORDERED: ATROPINE ABBOJECT 1 MG/10 ML SYRINGE IVP PRN (08:24)
[2024-02-25] MEDS ORDERED: MORPHINE 2 MG/ML CARPUJECT IVP PRN (08:24)
[2024-02-25] MEDS ORDERED: NALOXONE 0.4 MG/ML VIAL IVP PRN (08:24)
[2024-02-25] MEDS ORDERED: ePHEDrine 50 MG/ML VIAL IVP PRN (08:24)
[2024-02-25] MEDS ORDERED: HYDROmorphone 0.5 MG/0.5 ML SYRINGE IVP PRN (08:24)
[2024-02-25] MEDS ORDERED: METOCLOPRAMIDE 10 MG/2 ML VIAL IVP PRN (08:24)
[2024-02-25] MEDS ORDERED: ONDANSETRON 4 MG/2 ML VIAL IVP PRN (08:24)
--- NOTE | 2024-02-25 08:24 | ANESTHESIA ---
Pre-Anesthesia VS, & Labs - Diagnosis desires sterilization - Procedure vasectomy Vital Signs: Temp Pulse Resp BP Pulse Ox O2 Flow Rate 36.8 C 79 20 137/89 H 99 02/25/24 07:45 02/25/24 07:45 02/25/24 07:45 02/25/24 07:45 02/25/24 07:45 Height: 5 ft 5 in Weight (kg): 104.8 kg Body Mass Index: 38.4 BMI Classification: Obese - NPO >8 hours Home Medications and Allergies Home Medications: Ambulatory Orders Pantoprazole [Protonix] 40 mg PO DAILY 02/12/24 Pantoprazole [Protonix] 40 mg PO DAILY 02/12/24 Allergies/Adverse Reactions: Allergies Allergy/AdvReac Type Severity Reaction Status Date / Time No Known Drug Allergies Allergy Verified 06/14/23 03:35 Anes History & Medical History - Anesthetic History Anesthesia Complications: reports: No previous complications Family history of Anesthesia Complications: Denies Family history of Malignant Hyperthermia: Denies - Medical History Cardiovascular: reports: None Pulmonary: reports: Sleep apnea, CPAP use Gastrointestinal: reports: Other Urinary: reports: Kidney stones Musculoskeletal: reports: None Endocrine/Autoimmune: reports: None Skin: reports: Eczema Smoking Status: Never smoker Psychosocial: reports: No issues indicated History of Cancer?: No - Surgical History General: reports: Cholecystectomy, EGD Exam General: Alert, Oriented x3, Cooperative Dental: WNL Mouth Openin Fingerbreadth Neck Mobility: Normal Mallampati classification: II Thyromental Distance: 4-6 cm Respiratory: Lungs clear Cardiovascular: Regular rate Plan Anesthesia Type: General Consent for Procedure(s) Verified and Reviewed: Yes Code Status: Attempt Resuscitation ASA classification: 2-Mild systemic disease Is this case an emergency?: No
[2024-02-25] MEDS ORDERED: LACTATED RINGERS 1,000 ML IV SCH (09:00)
[2024-02-25] MEDS ORDERED: MIDAZOLAM 2 MG/2 ML VIAL ONE (09:06)
[2024-02-25] MEDS ORDERED: PROPOFOL 500 MG/50 ML 500 MG/50 ML VIAL ONE (09:06)
[2024-02-25] MEDS ORDERED: fentaNYL 100 MCG/2 ML VIAL ONE (09:06)
[2024-02-25] MEDS ORDERED: LIDOCAINE-PF 2% 10 ML AMP SUBQ ONE (09:09)
[2024-02-25] MEDS ORDERED: LIDOCAINE-MPF 1% 30 ML VIAL ONE (09:39)
[2024-02-25] MEDS ORDERED: BUPIVACAINE 0.25% PF 30 ML VIAL ONE (09:39)
[2024-02-25] MEDS: LIDOCAINE 1% 50 ML MDV SUBQ ONE ×2 (09:43)
[2024-02-25] MEDS ORDERED: DEXAMETHASONE 4 MG/ML VIAL ONE (10:07)
[2024-02-25] MEDS ORDERED: ONDANSETRON 4 MG/2 ML VIAL ONE (10:07)
--- NOTE | 2024-02-25 10:39 | Discharge Plan ---
Discharge Plan Problem Reviewed?: Yes Disposition: Home, Self Care Condition: Good Diet: Regular Activity Restrictions: Additional Comments (as instructed) Shower Restrictions: No Driving Restrictions: No Instruction Topics: Vasectomy No Scalpel No Smoking: If you smoke, Please STOP! Call for help. Follow-up with: Priti Watt ARNP [Primary Care Provider] -
--- NOTE | 2024-02-25 10:42 | OPERATIVE REPORT ---
Operative Report - General Procedure Date: 02/25/24 Planned Procedure: Bilateral vasectomy Pre-Op Diagnosis: elective sterilization Procedure Performed: Bilateral vasectomy Post Op Diagnosis: elective sterilization - Procedure Note Primary Surgeon: Tino Anesthesia Provider: ELAINE Cintron Anesthesia Technique: General LMA Pathology: left and right vas deferens Estimated Blood Loss (mL): 0 Indications: History of vasectomy Summer 2022, persistent sperm presence Complications: none - Other Other Information/Narrative: After informed consent obtained patient brought to the OR and laid in supine position. The patient was anesthetized per anesthesia protocols and then prepped and draped in usual sterile fashion. A formal timeout was performed reconfirming the patient, procedure and laterality. 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 His vas deferens identified through his right hemiscrotum proximal to the sperm granuloma. 1% lidocaine was used as local. Using a sharp mosquito his scrotal tissue was dissected away and his vas sheath was grasped using a ring clamp. This was sharply incised and the vas was identified and pulled out. It was clamped on both sides and the intervening 1 cm segment was removed via cautery. This was sent for analysis. The ends were cauterized as well. The ends were suture-ligated with chromic suture and then the distal end was buried using a fascial interposition stitch using 3-0 chromic suture. There was no bleeding. His skin was closed using a 3-0 chromic horizontal mattress stitch. An identical procedure performed on the left side. Band-Aids were placed.
[2024-02-25 11:27] VITALS: BP 132/81; O2SAT 95
[2024-02-25] MEDS ORDERED: oxyCODONE 5 MG TABLET ONE (11:29)
[2024-02-25] MEDS: oxyCODONE 5 MG TABLET PO PRN (11:30)
--- NOTE | 2024-02-25 14:15 | ANESTHESIA POST OP EVALUATION ---
Anesthesia Post Eval - Post Anesthesia Eval Vitals: Last Vital Signs Temp 37.1 C 02/25/24 10:38 Pulse 79 02/25/24 11:10 Resp 15 02/25/24 11:10 BP 132/81 H 02/25/24 11:10 Pulse Ox 95 02/25/24 11:10 O2 Flow Rate CV Function Including HR & BP: Stable Pain Control: Satisfactory Nausea & Vomiting: Negative Mental Status: Baseline Respiratory Status: Airway Patent Hydration Status: Satisfactory Anesthesia Complications: None
== END 2024-02-25 07:28 | disposition home or self-care (01) ==
LOC: SDS 07:27
PROVIDERS: ATTEND Urology
PROC: 0VBQ3ZZ Excision of Bilateral Vas Deferens, Percutaneous Approach (ICD-10-PCS; principal; 2024-02-25 09:15)
DX: Z30.2 Encounter for sterilization (principal); G47.30 Sleep apnea, unspecified; E66.9 Obesity, unspecified; Z68.38 Body mass index [BMI] 38.0-38.9, adult
CPT/HCPCS: 55250; A9270; J7120